=== PATIENT | female | born 1970 | race Caucasian/White ===

== ENCOUNTER 2022-01-25 12:31 | Emergency (ER) | payer BC ==
[2022-01-25] MEDS ORDERED: Sodium Chloride 0.9% 10 ML Syringe FLUSH PRN (12:34)
[2022-01-25] MEDS ORDERED: Aspirin 81 MG Tab.Chew PO ONE (12:45)
[2022-01-25 13:17] LABS: PTT,PARTIAL THROMBOPLSTIN TIME 25.8 SEC (23.6-29.8)
[2022-01-25 13:28] LABS: CHLORIDE,CL 100 mmol/L (98-107); SODIUM,NA 136 mmol/L (136-145)
[2022-01-25 13:32] LABS: ANION GAP 16.2 meq/L (7-15)
[2022-01-25] MEDS ORDERED: Potassium Bicarbonate/Cit Ac 20 MEQ Effervescent Tab PO ONE (13:36)
[2022-01-25] MEDS ORDERED: Potassium Chloride Riders 10 MEQ in Premix Bag 1 BAG IV ONE (13:38)
[2022-01-25] MEDS ORDERED: Sodium Chloride 0.9% 500 ML IV SCH (13:45)
[2022-01-25 14:26] LABS: RESPIRATORY SYNCYTIAL VIR NAA NEGATIVE (NEGATIVE)
[2022-01-25 14:29] LABS: CORONAVIRUS COVID-19 NAA POSITIVE (NEGATIVE)
== END 2022-01-25 16:35 | disposition home or self-care (01) ==
LOC: LL.ED 12:31
DX: U07.1 COVID-19 (principal); Z79.899 Other long term (current) drug therapy; Z88.8 Allergy status to other drugs, medicaments and biological substances
CPT/HCPCS: 0241U; 36415; 71045; 80053; 81003; 82550; 83605; 83735; 83880; 84132; 84443; 84484; 85025; 85379; 85610; 85730; 93005; 93010; 96365; 99284; 99285-25; A9270-GY; J3480; J7040

== ENCOUNTER 2025-06-26 18:19 | Emergency (ER) | payer BC ==
[2025-06-26] MEDS: Take Home: predniSONE 20 MG, 4 Tab Pack PO ONE (18:45)
== END 2025-06-26 18:45 | disposition home or self-care (01) ==
LOC: LL.ED 18:19
DX: J40 Bronchitis, not specified as acute or chronic (principal); Z88.8 Allergy status to other drugs, medicaments and biological substances; Z79.899 Other long term (current) drug therapy
CPT/HCPCS: 99283; A9270-GY